=== PATIENT | female | born 1945 | race Two or more races ===

== ENCOUNTER 2024-07-24 09:51 | Outpatient (CLI) | payer MEDICARE, BC, SELFPAY ==
--- NOTE | 2024-07-24 09:58 | MR_ITS ---
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 Software platform sequences were performed using the Siemens riskmethods MR B19 platform. A set of three-plane, low-resolution, large [id number] localizers were initially acquired. Then axial, coronal, sagittal TrueFISP, as well as axial HASTE images, were obtained. These were followed by gated TrueFISP breathold cinematic sequences obtained in the short axis with 8 mm slices and 2 mm gaps, 2-chamber (vertical long axis), 3-chamber, 4-chamber (horizontal long axis). A bolus of contrast was injected intravenously with first-pass sequences obtained in the short axis and four-chamber planes. After approximately 10 minutes, a TI usability strategist sequence was performed to determine the optimal TI time. Using the optimized TI time, delayed contrast enhancement segmented inversion???recovery TurboFLASH sequences were obtained in the short axis, 2-chamber, 3-chamber, and 4-chamber projections. 2D-velocity phase mapping was performed. Functional parameters were calculated by offline analysis on an independent workstation ([employer], [employer] [place]). Contrast: ProHance??? (Gadoteridol) FINDINGS MORPHOLOGY AND FUNCTION Left ventricle: The left ventricle is normal in size. The indexed left ventricular end-diastolic volume (LVEDVi) is 73 ml/m2 (reference range 57-105 ml/m2 in males, 56-96 ml/m2 in females). Mild reduction in left ventricular systolic function is present. There is normal left ventricular wall thickness, measing up to 10 mm. There is moderate hypokinesis of the mid to distal septal and anterior septal LV [place]. LVEF is calculated at 42.0% (reference range 57-77%). Right ventricle: The right ventricle is normal in size. The indexed right ventricular end-diastolic volume (RVEDVi) is 61 ml/m2 (reference range 61-121 ml/m2 in males, 48-112 ml/m2 in females). Mild reduction in right ventricular systolic function is present. RVEF is calculated at 44.3% (reference range 52-72% in males, 51-71% in females). Atria: The left atrium is normal in size. The maximum indexed left atrial volume is 31 ml/m2 (reference range 26-52 ml/m2 in males, 27-53 ml/m2 in females). The right atrium is normal in size. The maximum indexed right atrial volume is 34 ml/m2 (reference range 18-90 ml/m2). Aorta: The diameter of the aortic annulus is normal, measuring 21 mm (coronal view reference range 21-30 mm in males, 19-27 mm in females). The diameter of the aortic sinus is normal, measuring 27 mm (coronal view reference range 25-42 mm in males, 24-36 mm in females). The diameter of the sinotubular junction is normal, measuring 26 mm (coronal view reference range 18-32 mm in males, 18-28 mm in females). The diameters of the ascending and descending thoracic aorta are normal. Main pulmonary artery: The main pulmonary artery diameter is normal. Pericardium: The pericardial thickness is normal. The pericardial thickness measures 1.0 mm (normal < 4.0 mm). There is no pericardial effusion. VALVES Mild aortic regurgitation is present. Regurgitant fraction is calculated at 8%. Systolic anterior motion of the mitral valve is not visualized. Ratio of pulmonary to systemic flow, Qp:Qs ratio = 0.8 (normal < or = 1.2, hemodynamically significant shunt > 1.5), demonstrating no evidence of hemodynamically significant shunt. TISSUE CHARACTERIZATION Resting Perfusion: Resting hypoperfusion is noted in the mid to distal septal LV wall. Myocardial Fibrosis and/or edema: Normal gadolinium kinetics are present. No evidence of late gadolinium enhancement is noted, consistent with absence of myocardial scarring, infarction, or necrosis. T2-weighted imaging demonstrates no evidence of myocardial edema or inflammation. OTHER No other significant findings are noted. However, this exam is focused on the cardiac structure and function. IMPRESSION Normal LV size with mild reduction in LV systolic function. LVEDVi= 73 ml/m2 and LVEF= 42.0%. Normal LV wall thickness (maximum 10 mm). Normal RV size with mild reduction in RV systolic function. RVEDVi= 61 ml/m2 and RVEF= 44.3%. No atrial enlargement. No CMR evidence of myocardial scarring, infarction, or necrosis. No evidence of myocardial edema or inflammation. Perfusion analysis demonstrates resting hypoperfusion in the mid to distal septal LV wall. Mild aortic regurgitation is present. Regurgitant fraction is calculated at 8%. Ratio of pulmonary to systemic flow, Qp:Qs ratio = 0.8 (normal < or = 1.2, hemodynamically significant shunt > 1.5), demonstrating no evidence of hemodynamically significant shunt. Overall, this CMR demonstrates mild reduction in biventricular systolic function. Resting hypoperfusion in the septal LV wall may represent ischemia, in the appropriate clinical setting. However, no evidence of prior infarct, scarring, or fibrosis. The findings are suggestive of viable myocardial tissue. There is no CMR evidence of infiltrative or hypertrophic cardiomyopathy. COMPARISON None CRITICAL RESULT None COMMUNICATION Per this written report The findings of this cardiac MR were reviewed, reported, and signed by Adalberto Arizmendi MD (Multi Share Program Coordinator). Conclusion Electronically signed by : Jania Arizmendi MD 07/30/2024 23:52:25
[2024-07-24] MEDS: GADOTERIDOL INJ 20ML SYRINGE 15 ML IV (11:34)
[2024-07-24] MEDS: 0.9 % SODIUM CHLORIDE 50 ML VIAL IV (11:34)
[2024-07-24] MEDS: SODIUM CHLORIDE 0.9% 10ML SYR (RAD ONLY) 10 ML IV (11:34)
== END 2024-07-24 23:59 | disposition home or self-care (01) ==
LOC: RAD 09:52
PROVIDERS: PCP Pediatrics; Visit Provider Internal Medicine Interventional Cardiology
DX: I25.5 Ischemic cardiomyopathy (principal)
CPT/HCPCS: 75561; A9576